=== PATIENT | female | born 1975 | race Caucasian/White ===

== ENCOUNTER 2023-08-06 10:33 | Outpatient (CLI) | payer MEDICAID ==
--- NOTE | 2023-08-06 13:12 | XRAY Report ---
PROCEDURE: Hips w/Pelvis 2-3V BL INDICATIONS: ARTHRITIS,HIPS,BILATERAL TECHNIQUE: 3 view(s) of the hip were acquired. COMPARISON: None. FINDINGS: Bones: No fractures or dislocations. Mild bilateral femoroacetabular joint space narrowing. Degener ative changes of the lower lumbar spine. No suspicious bony lesions. The visualized pelvic ring appe ars intact. Soft tissues: No suspicious soft tissue calcifications or masses. IMPRESSION: 1.No acute bony abnormality. If there remains a high clinical concern for fracture, consider cross-se ctional imaging now. If pain persists, consider repeat x-ray in 10-14 days or cross-sectional imaging . 2.Mild bilateral hip joint space narrowing, symmetric. Reviewed by: Ricardo Benitez MD on 08/06/2023 1:11 PM PDT Approved by: Ricardo Benitez MD on 08/06/2023 1:11 PM PDT Station ID: [id number]
[2023-08-06 15:13] LABS: BASOPHILS % (AUTO) 0.5 %; EOSINOPHILS # (AUTO) 0.2 10^3/uL (0.0-0.7); EOSINOPHILS % (AUTO) 2.8 %; HCT - HEMATOCRIT 40.3 % (37.0-47.0); HGB - HEMOGLOBIN 12.8 g/dL (12.0-16.0); LYMPHOCYTES # (AUTO) 1.8 10^3/uL (1.5-3.5); LYMPHOCYTES % (AUTO) 30.3 %; MEAN CORPUSCULAR HEMOGLOBIN 32.6 pg (27.0-31.0); MEAN CORPUSCULAR HGB CONC 31.8 g/dL (32.0-36.0); MEAN CORPUSCULAR VOLUME 102.5 fL (81.0-99.0); MEAN PLATELET VOLUME 10.6 fL (7.9-10.8); MONOCYTES # (AUTO) 0.5 10^3/uL (0.0-1.0); MONOCYTES % (AUTO) 7.9 %; NEUTROPHILS # (AUTO) 3.5 10^3/uL (1.5-6.6); NEUTROPHILS % (AUTO) 58.3 %; PLT - PLATELET COUNT 289 10^3/uL (130-450); RED BLOOD COUNT 3.93 10^6/uL (4.20-5.40); RED CELL DISTRIBUTION WIDTH 12.9 % (12.0-15.0); WHITE BLOOD COUNT 6.1 x10^3/uL (4.8-10.8)
[2023-08-06 15:34] LABS: ALBUMIN 4.1 g/dL (3.2-5.5); ALBUMIN/GLOBULIN RATIO 1.7 (1.0-2.2); ALKALINE PHOSPHATASE 44 IU/L (42-121); ALT ALANINE AMINOTRANSFERASE 15 IU/L (10-60); AST ASPARTATE AMINOTRANSFERASE 15 IU/L (10-42); BILIRUBIN,TOTAL 0.3 mg/dL (0.2-1.0); BUN - BLOOD UREA NITROGEN 13 mg/dL (6-20); CALCIUM 9.6 mg/dL (8.5-10.3); CARBON DIOXIDE - CO2 25 mmol/L (21-32); CHLORIDE 109 mmol/L (101-111); CHOL/HDL RATIO 4.4 (<4.4); CHOLESTEROL 222 mg/dL; CREATININE 0.8 mg/dL (0.6-1.3); GFR - MDRD 76 (>89); GLUCOSE 94 mg/dL (74-104); HDL CHOLESTEROL 50 mg/dL; LDL CHOLESTEROL,CALCULATED 147 mg/dL; LDL/HDL RATIO 2.9 (<4.4); POTASSIUM 4.1 mmol/L (3.5-4.5); SODIUM 139 mmol/L (135-145); TOTAL PROTEIN 6.5 g/dL (6.4-8.9); TRIGLYCERIDES 127 mg/dL (48-352); VLDL CHOLESTEROL 25 mg/dL
== END 2023-08-06 10:34 | disposition home or self-care (01) ==
LOC: DI.S 10:33
PROVIDERS: ATTEND Physician Assistant Medical
DX: M16.0 Bilateral primary osteoarthritis of hip (principal); Z13.9 Encounter for screening, unspecified
CPT/HCPCS: 36415; 80053; 80061; 83721; 85025

== ENCOUNTER 2023-10-30 08:00 | Outpatient (CLI) | payer MEDICAID ==
--- NOTE | 2023-10-31 17:58 | XRAY Report ---
PROCEDURE: Wrist 3+V RT INDICATIONS: RIGHT WRIST LACERATION/PAIN/DOG BITE TECHNIQUE: 3 views of the wrist were acquired. COMPARISON: None. FINDINGS: Bones: No fractures or dislocations. No suspicious bony lesions. Soft tissues: No suspicious soft tissue calcifications or masses. Soft tissue laceration adjacent to the radius. No radiopaque foreign body. IMPRESSION: No visualized acute fracture or dislocation. However, occult injury cannot be excluded. Recommend jammie rt interval imaging follow-up in 7-10 days as clinically indicated for additional evaluation. Reviewed by: Jessenia Luna MD on 10/31/2023 5:57 PM PDT Approved by: Jessenia Luna MD on 10/31/2023 5:57 PM PDT Station ID: [id number]
== END 2023-10-30 23:59 | disposition home or self-care (01) ==
LOC: DI.S 08:00
PROVIDERS: ATTEND Registered Nurse
DX: S61.511A Laceration without foreign body of right wrist, initial encounter (principal); M25.531 Pain in right wrist

== ENCOUNTER 2023-11-05 07:57 | Outpatient (CLI) | payer MEDICAID ==
--- NOTE | 2023-11-05 20:29 | CT Report ---
PROCEDURE: Lung Cancer Screen INDICATIONS: TOBACCO USE TECHNIQUE: A CT scan of the chest was performed. Intravenous contrast media was not administered. Images were re corded and evaluated at appropriate window settings. Reformats: axial MIP of the chest, coronal and s agittal. For radiation dose reduction, the following was used: automated exposure control, adjustment of mA and/or kV according to patient size. COMPARISON: None. FINDINGS: Image quality: Excellent. Prior cancer history: Unsure. Lungs and pleura: No pleural effusions. No pneumothorax. No suspicious pulmonary nodules which requi re follow up. Mediastinum: Heart size is normal. No pericardial effusion. No large vessel abnormality. No mediastin al adenopathy by size criteria. No significant coronary calcifications. Chest wall and lower neck: Thyroid is unremarkable. No axillary or supraclavicular adenopathy by size . Bones: No aggressive osseous abnormality. No acute fractures. Upper Abdomen: Multiple bilateral nonobstructive nephroliths measuring up to 6 mm on the right (2/104 ) and 3 mm on the left (2/120). IMPRESSION: 1. No suspicious pulmonary nodules or consolidation. Lung RAD: 1 - Negative. Recommendation: Continue annual screening in 12 Months with LDCT 2. Multiple bilateral nonobstructive nephroliths measuring up to 6 mm on the right and 3 mm on the le ft. Reviewed by: Ricardo Benitez MD on 11/05/2023 8:28 PM PDT Approved by: Ricardo Benitez MD on 11/05/2023 8:28 PM PDT Station ID: [id number]
== END 2023-11-05 07:58 | disposition home or self-care (01) ==
LOC: DI 07:57
PROVIDERS: ATTEND Nurse Practitioner Gerontology
DX: Z12.2 Encounter for screening for malignant neoplasm of respiratory organs (principal); Z72.0 Tobacco use; N20.0 Calculus of kidney; R19.7 Diarrhea, unspecified
CPT/HCPCS: 87493

== ENCOUNTER 2023-12-31 09:29 | Outpatient (CLI) | payer MEDICAID ==
[2023-12-31 09:51] LABS: HCT - HEMATOCRIT 42.7 % (37.0-47.0); HGB - HEMOGLOBIN 13.9 g/dL (12.0-16.0); MEAN CORPUSCULAR HEMOGLOBIN 31.8 pg (27.0-31.0); MEAN CORPUSCULAR HGB CONC 32.6 g/dL (32.0-36.0); MEAN CORPUSCULAR VOLUME 97.7 fL (81.0-99.0); MEAN PLATELET VOLUME 9.8 fL (7.9-10.8); RED BLOOD COUNT 4.37 10^6/uL (4.20-5.40); RED CELL DISTRIBUTION WIDTH 12.3 % (12.0-15.0); WHITE BLOOD COUNT 5.1 x10^3/uL (4.8-10.8)
[2023-12-31 10:11] LABS: RHEUMATOID FACTOR NEGATIVE (Negative)
[2023-12-31 10:19] LABS: CRP - C-REACTIVE PROTEIN < 0.5 mg/dL (<0.5); URIC ACID 4.8 mg/dL (2.3-6.6)
[2023-12-31 10:25] LABS: PROLACTIN 6.75 ng/mL
[2024-01-01 07:09] LABS: PROGESTERONE 0.3 ng/mL (.)
== END 2023-12-31 09:30 | disposition home or self-care (01) ==
LOC: LAB 09:29
PROVIDERS: ATTEND Nurse Practitioner Gerontology
DX: R23.2 Flushing (principal); N95.1 Menopausal and female climacteric states; M79.643 Pain in unspecified hand
CPT/HCPCS: 36415; 82670; 83001; 83002; 84144; 84146; 84550; 85027; 85651; 86038; 86140; 86200; 86225; 86430